=== PATIENT | female | born 1980 | race Caucasian/White ===

== ENCOUNTER → 2021-08-17 | Outpatient (CLI) | payer OTHER ==
[2021-08-17 15:49] LABS: HEMOGLOBIN 13.1 gm/dl (12.3-15.3); RED BLOOD COUNT 4.13 M/UL (4.00-5.10); WHITE BLOOD COUNT 9.1 K/UL (4.5-11.0)
== END ==
LOC: LAB 13:52
PROVIDERS: Internal Medicine
DX: M25.50 Pain in unspecified joint (principal); Z79.1 Long term (current) use of non-steroidal anti-inflammatories (NSAID); M19.042 Primary osteoarthritis, left hand; M19.041 Primary osteoarthritis, right hand; D89.89 Other specified disorders involving the immune mechanism, not elsewhere classified; R76.8 Other specified abnormal immunological findings in serum
CPT/HCPCS: 36415; 73130; 80053; 82728; 85025; 85652; 86140

== ENCOUNTER → 2021-10-12 | Outpatient (CLI) | payer OTHER | LOC: KOH-I 15:00 | DX: M19.012 Primary osteoarthritis, left shoulder (principal) | CPT/HCPCS: 73200 ==

== ENCOUNTER → 2021-11-16 | Outpatient (CLI) | payer OTHER ==
[~2021-11-16] MED LIST: ALBUTEROL INH; DEXEDRINE15 MG PO; EMGALITY120 MG/1 M SQ; IBU800 MG PO; PEPCID40 MG PO; PRILOSEC PO; PROZAC40 MG PO; SINGULAIR10 MG PO; SYNTHROID75 MCG PO; TOPAMAX200 MG PO; UBRELVY100 MG PO; VITAMIN D21250 MCG PO; ZYRTEC10 MG PO; [UNRECOGNIZED DRUG - OTHER] PO
[2021-11-16 09:39] LABS: HEMOGLOBIN 14.5 gm/dl (12.3-15.3); RED BLOOD COUNT 4.6 M/UL (4.00-5.10)
[2021-11-16 10:00] LABS: BUN/CREATININE RATIO 10 (0-10)
== END ==
LOC: EDSTATUS 08:00 → OPSV2 08:00
PROVIDERS: Anesthesiology
DX: Z01.818 Encounter for other preprocedural examination (principal); M19.012 Primary osteoarthritis, left shoulder
CPT/HCPCS: 36415; 71046; 80048; 84703; 85025